=== PATIENT | female | born 2000 | race Caucasian/White ===

== ENCOUNTER 2020-06-13 11:27 | Outpatient (CLI) | payer OTHER ==
[2020-06-13 12:18] LABS: APPEARANCE,URINE CLOUDY; BILIRUBIN,URINE NEGATIVE (NEGATIVE); COLOR,URINE YELLOW; GLUCOSE, URINE NEGATIVE (NEGATIVE); KETONES,URINE NEGATIVE (NEGATIVE); LEUKOCYTE ESTERASE,URINE LARGE (NEGATIVE); NITRITE,URINE NEGATIVE (NEGATIVE); PROTEIN,URINE NEGATIVE (NEGATIVE); URINE SPECIFIC GRAVITY 1.006; UROBILINOGEN,URINE NEGATIVE mg/dL (<2.0)
[2020-06-13 12:40] LABS: URINE AMPHETAMINES SCREEN NEGATIVE; URINE BARBITURATES SCREEN NEGATIVE; URINE BENZODIAZEPINES SCREEN NEGATIVE; URINE COCAINE SCREEN NEGATIVE; URINE MARIJUANA (THC) SCREEN NEGATIVE; URINE METHADONE SCREEN NEGATIVE; URINE PHENCYCLIDINE SCREEN NEGATIVE
[2020-06-13 12:44] LABS: UR PRO/CREAT RATIO RESULT 0.3 mg/mg (0.0-0.2); URINE CREATININE 44.5 mg/dL (16-327)
[2020-06-13 13:01] LABS: ABSOLUTE BASOPHILS # (AUTO) 0.1 10^3/uL (0.0-0.2); ABSOLUTE LYMPHOCYTES (AUTO) 2.5 10^3/uL (0.5-4.7); ABSOLUTE MONOCYTES (AUTO) 0.8 10^3/uL (0.1-1.4); BASOPHILS % (AUTO) 0.7 % (0-2); EOSINOPHILS % (AUTO) 0.4 % (0-6); HEMATOCRIT 35.5 % (36.0-47.0); HEMOGLOBIN 12.2 g/dL (12.0-15.5); LYMPHOCYTES % (AUTO) 24.2 % (13-45); MEAN CORPUSCULAR HEMOGLOBIN 27.6 pg (27.0-33.4); MEAN CORPUSCULAR HGB CONC 34.3 g/dL (32.0-36.0); MEAN CORPUSCULAR VOLUME 81 fl (80-97); MONOCYTES % (AUTO) 7.8 % (3-13); PLATELET COUNT 207 10^3/uL (150-450); RED BLOOD COUNT 4.41 10^6/uL (3.72-5.28); RED CELL DISTRIBUTION WIDTH 13.4 % (11.5-14.0); SEGMENTED NEUTROPHILS % (AUTO) 66.9 % (42-78); TOTAL CELLS COUNTED % (AUTO) 100 %; WHITE BLOOD COUNT 10.5 10^3/uL (4.0-10.5)
[2020-06-13 13:15] LABS: ALBUMIN 3.5 g/dL (3.5-5.0); ALKALINE PHOSPHATASE 198 U/L (38-126); ANION GAP 12 (5-19); ASPARTATE AMINO TRANSFERASE 17 U/L (14-36); BILIRUBIN,DIRECT 0.1 mg/dL (0.0-0.4); BILIRUBIN,TOTAL 0.3 mg/dL (0.2-1.3); BLOOD UREA NITROGEN 8 mg/dL (7-20); CALCIUM 8.8 mg/dL (8.4-10.2); CARBON DIOXIDE 19 mmol/L (22-30); CHLORIDE 105 mmol/L (98-107)
[2020-06-13 13:24] LABS: URIC ACID 5.7 mg/dL (2.5-6.2)
[2020-06-13 13:26] LABS: GLUCOSE 69 mg/dL (75-110)
== END 2020-06-13 13:53 | disposition home or self-care (01) ==
LOC: LC 11:27
PROVIDERS: ATTEND Obstetrics & Gynecology Gynecology
DX: O13.3 Gestational [pregnancy-induced] hypertension without significant proteinuria, third trimester (principal); Z3A.38 38 weeks gestation of pregnancy
CPT/HCPCS: 36415; 59025; 80053; 80307; 81005; 82570; 83615; 84156; 84550; 85025; 94760

== ENCOUNTER 2020-06-14 17:51 | Outpatient (CLI) | payer OTHER ==
[2020-06-14 18:50] LABS: URINE PROTEIN 9.4 mg/dL (<12)
[2020-06-14 18:52] LABS: 24 HOUR URINE PROTEIN RESULT 137 mg/day (42-225)
== END 2020-06-14 18:27 | disposition home or self-care (01) ==
LOC: LC 17:51
PROVIDERS: ATTEND Obstetrics & Gynecology
DX: O13.3 Gestational [pregnancy-induced] hypertension without significant proteinuria, third trimester (principal); Z3A.38 38 weeks gestation of pregnancy
CPT/HCPCS: 84156

== ENCOUNTER 2020-06-16 18:40 | Inpatient (IN) | payer OTHER ==
[2020-06-16] MEDS ORDERED: OXYTOCIN/0.9 % SODIUM CHLORIDE 30 UNIT/500 ML RTUINJ IV PRN (18:42)
[2020-06-16] MEDS ORDERED: DINOPROSTONE 10 MG VAGINAL INSERT.SR PV ONE (18:42)
[2020-06-16] MEDS ORDERED: RINGERS SOLUTION,LACTATED 300 ML IV ONE (18:42)
[2020-06-16] MEDS ORDERED: MAG HYDROX/AL HYDROX/SIMETH SUSP 30 ML UDCUP PO PRN (18:42)
[2020-06-16] MEDS ORDERED: ACETAMINOPHEN 325 MG TABLET PO PRN (18:42)
[2020-06-16] MEDS ORDERED: ZOLPIDEM TARTRATE 5 MG TABLET PO PRN (18:42)
[2020-06-16] MEDS ORDERED: MISOPROSTOL 0.2 MG TABLET ONE (18:47)
[2020-06-16] MEDS ORDERED: OXYTOCIN 10 UNIT/ML VIAL ONE (18:47)
[2020-06-16] MEDS ORDERED: OXYTOCIN/0.9 % SODIUM CHLORIDE 30 UNIT/500 ML RTUINJ ONE (18:47)
[2020-06-16] MEDS ORDERED: LIDOCAINE 1% INJ-PF (10 MG/ML) 30 ML SDV ONE (18:47)
[2020-06-16] MEDS ORDERED: DINOPROSTONE 10 MG VAGINAL INSERT.SR ONE (18:47)
[2020-06-16] MEDS: RINGERS SOLUTION,LACTATED 1,000 ML IV PRN (19:00)
[2020-06-16 19:12] LABS: ABSOLUTE BASOPHILS # (AUTO) 0.1 10^3/uL (0.0-0.2); ABSOLUTE LYMPHOCYTES (AUTO) 2.2 10^3/uL (0.5-4.7); ABSOLUTE MONOCYTES (AUTO) 0.5 10^3/uL (0.1-1.4); ABSOLUTE NEUT (AUTO) 6.2 10^3/uL (1.7-8.2); BASOPHILS % (AUTO) 0.8 % (0-2); EOSINOPHILS % (AUTO) 0.5 % (0-6); HEMATOCRIT 36.7 % (36.0-47.0); HEMOGLOBIN 12.6 g/dL (12.0-15.5); LYMPHOCYTES % (AUTO) 23.9 % (13-45); MEAN CORPUSCULAR HEMOGLOBIN 27.8 pg (27.0-33.4); MEAN CORPUSCULAR HGB CONC 34.3 g/dL (32.0-36.0); MEAN CORPUSCULAR VOLUME 81 fl (80-97); MONOCYTES % (AUTO) 5.8 % (3-13); PLATELET COUNT 223 10^3/uL (150-450); RED BLOOD COUNT 4.54 10^6/uL (3.72-5.28); RED CELL DISTRIBUTION WIDTH 13.5 % (11.5-14.0); TOTAL CELLS COUNTED % (AUTO) 100 %
[2020-06-16 19:28] LABS: APPEARANCE,URINE CLOUDY; BILIRUBIN,URINE NEGATIVE (NEGATIVE); COLOR,URINE YELLOW; GLUCOSE, URINE NEGATIVE (NEGATIVE); KETONES,URINE NEGATIVE (NEGATIVE); LEUKOCYTE ESTERASE,URINE MODERATE (NEGATIVE); NITRITE,URINE NEGATIVE (NEGATIVE); PROTEIN,URINE 30 mg/dL (NEGATIVE); URINE SPECIFIC GRAVITY 1.029
[2020-06-16 19:35] LABS: ALBUMIN 3.7 g/dL (3.5-5.0); ALKALINE PHOSPHATASE 202 U/L (38-126); ANION GAP 9 (5-19); ASPARTATE AMINO TRANSFERASE 19 U/L (14-36); BILIRUBIN,DIRECT 0.1 mg/dL (0.0-0.4); BILIRUBIN,TOTAL 0.3 mg/dL (0.2-1.3); BLOOD UREA NITROGEN 15 mg/dL (7-20); CALCIUM 9.4 mg/dL (8.4-10.2); CARBON DIOXIDE 19 mmol/L (22-30); CHLORIDE 106 mmol/L (98-107); GLUCOSE 110 mg/dL (75-110); POTASSIUM 4.2 mmol/L (3.6-5.0); TOTAL PROTEIN 6.4 g/dL (6.3-8.2); URIC ACID 5.9 mg/dL (2.5-6.2)
[2020-06-16 20:02] LABS: URINE AMPHETAMINES SCREEN NEGATIVE; URINE BARBITURATES SCREEN NEGATIVE; URINE BENZODIAZEPINES SCREEN NEGATIVE; URINE COCAINE SCREEN NEGATIVE; URINE MARIJUANA (THC) SCREEN NEGATIVE; URINE METHADONE SCREEN NEGATIVE; URINE PHENCYCLIDINE SCREEN NEGATIVE
--- NOTE | 2020-06-16 23:01 | Admission Physical ---
Datetime Report Generated by CPN: 06/16/2020 23:00 CURRENT ADMISSION Chief Complaint: Scheduled Induction of Labor Indication for Induction: Gestational HTN Admit Impression : Intact Membranes Admit Plan: Admit to Unit; Initiate Labor Induction Protocol ALLERGIES Medication Allergies: No Medication Allergies: No Known Allergies (06/16/2020) Latex: Unknown OBSTETRICAL HISTORY EDC: 06/21/2020 00:00 : 1 Para: 0 Term: 0 : 0 SAB: 0 IAB: 0 Ectopic: 0 Livin Cesareans: 0 VBACs: 0 Multiple Births: 0 Gestational Diabetes: No Rh Sensitization: No Incompetent Cervix: No BONY: No Infertility: No ART Treatment: No Uterine Anomaly: No IUGR: No Hx Previous C/S: No Macrosomia: No Hx Loss/Stillborn: No PIH: No Hx : No Placenta Previa/Abruption: No Depression/PP Depression: No PTL/PROM: No Post Hemorrhage: No Current Procedures: Ultrasound; NST SEE RECORDS Alcohol: No Marijuana : No Cocaine: No Other Illicit Drugs: No Cigarettes: Never Smoker. [id number] MEDICAL HISTORY Diabetes: No Blood Transfusion: No Pulmonary Disease (Asthma, TB): No Breast Disease: No Hypertension: No Connection Worker Surgery: No Heart Disease: No Hosp/Surgery: Yes Autoimmune Disorder: No Anesthetic Complications: No Kidney Disease: No Abnormal Pap Smear: No Neuro/Epilepsy: No Psychiatric Disorders: No Other Medical Diseases: Yes Hepatitis/Liver Disease: No Significant Family History: No Varicosities/Phlebitis: No Trauma/Violence : No Thyroid Dysfunction: No Medical History Comments: Tonsillectomy, Scoliosis 6 deg INFECTIOUS HISTORY Gonorrhea: No Genital Herpes: No Chlamydia: No Tuberculosis: No Syphilis: No Hepatitis: No HIV/AIDS Exposure: No Rash or Viral Illness: No HPV: No PHYSICAL EXAM General: Normal HEENT: Normal Neurologic: Normal Thyroid: Normal Heart: Normal Lungs: Normal Breast: Deferred Back: Normal Abdomen: Normal Genitourinary Exam: Normal Extremities: Normal DTRs: Normal Pelvic Type: Adequate Vital Signs: Reviewed VAGINAL EXAM Dilatation: 2 Effacement: 80 Station: -1 MEMBRANES Pooling: Negative Membranes: Intact FETUS A EGA: 39.2 Monitoring: External US FHR- Baseline: 140 Variability: Moderate 6-25bpm Decelerations: None FHR Category: Category I Admit Comment: admit for induction PLANS FOR LABOR AND DELIVERY Labor and Delivery: None Pain Management: Natural; Medications; Epidural Feeding Preference: Breast Circumcision: N/A INFORMED CONSENT Signature: with User ID: [email or web address]
[2020-06-17] MEDS: RINGERS SOLUTION,LACTATED 1,000 ML IV PRN (03:20)
--- NOTE | 2020-06-17 09:49 | Warning Signs in Babies ---
VOD Warning Signs Datetime Report Generated by [facility]: 06/17/2020 09:49 VOD#608 -Warning Signs in Babies: Viewed with Parent(s)/Family (06/17/2020 09:48:Keyshawn Maciel RN)
[2020-06-17] MEDS ORDERED: NALBUPHINE HCL INJ 10 MG/1 ML AMPULE INJ ONE (11:11)
[2020-06-17] MEDS ORDERED: PROMETHAZINE HCL INJ 25 MG/1 ML VIAL IV ONE (11:11)
[2020-06-17] MEDS ORDERED: NALBUPHINE HCL INJ 10 MG/1 ML AMPULE ONE (11:13)
[2020-06-17] MEDS ORDERED: PROMETHAZINE HCL INJ 25 MG/1 ML VIAL ONE (11:13)
[2020-06-17] MEDS ORDERED: FENTANYL/BUPIVACAINE/NS/PF 0 MCG/0 ML RTUINJ EPI ONE (13:03)
[2020-06-17] MEDS ORDERED: ROPIVACAINE HCL 0.2% INJ/PF (2 MG/ML) 20 ML SDV ONE (13:03)
[2020-06-17] MEDS ORDERED: EPHEDRINE SULFATE INJ 50 MG/1 ML AMPULE ONE (13:03)
[2020-06-17] MEDS ORDERED: ACETAMINOPHEN WITH CODEINE #3 TABLET PO PRN ×2 (13:25)
[2020-06-17] MEDS ORDERED: DIPH/PERTUSS(ACELL)/TETANUS VAC/PF 0.5 ML SYR (>=10YO) IM PRN (13:25)
[2020-06-17] MEDS ORDERED: MAGNESIUM HYDROXIDE SUSP 30 ML UDCUP PO PRN (13:25)
[2020-06-17] MEDS ORDERED: GLYCERIN/WITCH HAZEL LEAF 1 EACH MED..WIPE TP PRN (13:25)
[2020-06-17] MEDS ORDERED: NA PHOS,M-B/NA PHOS,DI-BA (ADULT) 133 ML ENEMA PR PRN (13:25)
[2020-06-17] MEDS ORDERED: DIPHENHYDRAMINE HCL 25 MG CAPSULE PO PRN (13:25)
[2020-06-17] MEDS ORDERED: PROMETHAZINE HCL 25 MG TABLET PO PRN (13:25)
[2020-06-17] MEDS ORDERED: PROMETHAZINE HCL INJ 25 MG/1 ML VIAL IV PRN (13:25)
[2020-06-17] MEDS ORDERED: MEASLES,MUMPS&RUBELLA VACC/PF 0.5 ML VIAL SUBCUT PRN (13:25)
[2020-06-17] MEDS ORDERED: PROMETHAZINE HCL 25 MG SUPP.RECT PR PRN (13:25)
[2020-06-17] MEDS ORDERED: PSEUDOEPHEDRINE HCL 30 MG TABLET PO PRN (13:25)
[2020-06-17] MEDS ORDERED: DIBUCAINE 1% OINTMENT 28 GM TP PRN (13:25)
[2020-06-17] MEDS ORDERED: OXYTOCIN/0.9 % SODIUM CHLORIDE 30 UNIT/500 ML RTUINJ IV PRN (13:25)
[2020-06-17] MEDS ORDERED: ZOLPIDEM TARTRATE 5 MG TABLET PO PRN (13:25)
[2020-06-17] MEDS ORDERED: BENZOCAINE/MENTHOL AEROSOL SPRAY 56 ML TOP PRN (13:25)
[2020-06-17] MEDS ORDERED: ACETAMINOPHEN 650 MG SUPP.RECT PR PRN (13:25)
[2020-06-17] MEDS: IBUPROFEN 800 MG TABLET PO SCH ×2 (16:55→22:35)
[2020-06-17] MEDS: DOCUSATE SODIUM 100 MG CAPSULE PO SCH (17:17)
[2020-06-17] MEDS: FERROUS SULFATE 325 MG TABLET PO SCH (17:17)
--- NOTE | 2020-06-17 17:19 | Delivery Summary ---
Del Sum A-C Datetime Report Generated by CPN: 06/17/2020 17:19 DELIVERY PERSONNEL DELIVERY PERSONNEL: [id number] Delivery Doctor:: Clovis Corral MD Labor and Delivery Nurse:: Keyshawn Maciel RNslime plant operator helper Nurse:: Shereen Munoz RN Nursery Nurse:: Shaniqua Saunders RN Nursery Nurse:: Monica Abreu RN Financial Accounting Manager/AIRPORT GUIDE: Savana Salomon, SNOWBOARDER MATERNAL INFORMATION Delivery Anesthesia: None Medications After Delivery: Pitocin 30 Units in 500ml NS/D5W Delivery QBL: 100 Maternal Complications: None LABOR SUMMARY EDC: 06/21/2020 00:00 No. Babies in Womb: 1 Attempted: No Labor Anesthesia: None LABOR INFORMATION Reason for Induction: Chronic Primary/Essential HTN Onset of Labor: 06/17/2020 11:28 Complete Dilatation: 06/17/2020 13:10 Cervical Ripening Agents: Cervidil Oxytocin: Induction Group B Beta Strep: Negative Antibiotics # of Doses: 0 Name of Antibiotic Given: N/A Steroids Given: None Reason Steroids Not Administered: Not Applicable MEMBRANES Membranes Rupture Method: Artificial Rupture of Membranes: 06/17/2020 09:14 Length of Rupture (hr): 5.28 Amniotic Fluid Color: Clear Amniotic Fluid Amount: Small Amniotic Fluid Odor: None STAGES OF LABOR Stage 1 hr: 1 Stage 1 min: 42 Stage 2 hr: 1 Stage 2 min: 21 Stage 3 hr: 0 Stage 3 min: 9 Total Time in Labor hr: 3 Total Time in Labor min: 12 VAGINAL DELIVERY Episiotomy: None Laceration #1: Perineal Laceration Extension #1: Second Degree Laceration #2: None Laceration Extension #2: N/A Laceration #3: None Laceration Extension #3: N/A Laceration Repair: Yes Laceration Repair Note: repair of second degree perineal laceration with 3-0 chromic Sponge Count Correct: Vaginal Sweep Performed Sharps Count Correct: Yes CSECTION DELIVERY Primary Indication: N/A Secondary Indication: N/A CSection Incidence: N/A Labor: N/A Elective: N/A CSection Incision: N/A BABY A INFORMATION Delivery Date/Time: 06/17/2020 14:31 Method of Delivery: Vaginal Nurse Controlled Delivery: No Born in Route : No : N/A Forceps: N/A Vacuum Extraction: N/A Shoulder Dystocia : No PRESENTATION/POSITION BABY A Presentation: Cephalic Cephalic Presentation: Vertex Vertex Position: Left Occipital Anterior Breech Presentation: N/A PLACENTA INFORMATION BABY A Placenta Delivery Time : 06/17/2020 14:40 Placenta Method of Delivery: Spontaneous Placenta Status: Delivered SCORES BABY A Heart Rate 1 min: >100 bpm Resp Effort 1 min: Good Cry Reflex Irritability 1 min: Cough or Sneeze or Pulls Away Muscle Tone 1 min: Active Motion Color 1 min: Body [place], Extremities Blue Resuscitation Effort 1 min: Tactile Stimulation SCORE 1 MIN: 9 Heart Rate 5 min: >100 bpm Resp Effort 5 min: Good Cry Reflex Irritability 5 min: Cough or Sneeze or Pulls Away Muscle Tone 5 min: Active Motion Color 5 min: Body [place], Extremities Blue Resuscitation Effort 5 min: Tactile Stimulation SCORE 5 MIN: 9 INFORMATION BABY A Gestational Age at Delivery: 39.3 Gestational Status: Full Term- 39- 40.6 Weeks Outcome : Liveborn Infant Condition : Stable Infant Sex: Female IDENTIFICATION BABY A Infant Verification Date/Time: 06/17/2020 14:57 ID Band Number: [id number] Mother's Name Verified: Yes RN Verifying : TMartin,RNC Additional Verifying Personnel: TMartin,RNC WEIGHT/LENGTH BABY A Infant Birthweight (gm): 3215 Infant Weight (lb): 7 Infant Weight (oz): 1 Length (in): 19.50 Length (cm): 49.53 CORD INFORMATION BABY A No. Cord Vessels: 3 Nuchal Cord : N/A Cord Blood Taken: Yes-For Storage (Mom's Blood type +) Suction: None ASSESSMENT BABY A Infant Complications: None Physical Findings at Delivery: Within Normal Limits Infant Respirations: Appears Normal Skin to Skin: Yes Transferred To: Remains with Mother BABY B INFORMATION : N/A SIGNATURES Signature: with User ID: [email or web address]
--- NOTE | 2020-06-17 17:19 | Birth Certificate Data ---
Cert Data Datetime Report Generated by CPN: 06/17/2020 17:19 CERTIFICATE DATA Delivery Provider: Clovis Corral MD (06/13/2020 11:37:Harriett Short RN) 47a. Care: Yes (06/13/2020 11:37:Beatris Andres RN) 47b. Date of First Visit: 10/31/2019 00:00 (06/13/2020 11:37:Beatris Andres RN) 47c. Date of Last Visit: 06/11/2020 00:00 (06/13/2020 11:37:Harriett Short RN) 47d. Number of Visits: 14 (06/13/2020 11:37:Keyshawn Maciel RN) 48a. Number of Prev Live Births: 0 (06/13/2020 11:37:Beatris Andres RN) 48b. Now Livin (06/13/2020 11:37:Beatris Andres RN) 48c. Live Births Now : 0 (06/13/2020 11:37:QS system process) 48e. Losses: 0 (06/13/2020 11:37:Beatris Andres RN) RISK FACTORS IN THIS 49a. Diabetes: No (06/13/2020 11:37:Keyshawn Maciel RN) 49b. Hypertension: No (06/13/2020 11:37:Keyshawn Maciel RN) Type of Hypertension: Gestational (PIH, Pre-eclampsia) (06/13/2020 11:37:Darshana Cano RN) 49c. Previous Births: 0 (06/13/2020 11:37:Keyshawn Maciel RN) 49d. Stillborns: No (06/13/2020 11:37:Keyshawn Maciel RN) 49d. IUGR: No (06/13/2020 11:37:Keyshawn Maciel RN) 49e. Infertility Treatment: No (06/13/2020 11:37:Keyshawn Maciel RN) 49f. Previous Cesareans: 0 (06/13/2020 11:37:Keyshawn Maciel RN) Mother's Height 50b. Height Inches: 68 (06/17/2020 16:49:QS system process) Mother's Weight 51a. Pre- Weight (lbs): 180 (06/13/2020 11:37:Harriett Short RN) 51b. Weight at Delivery (lbs): 200 (06/17/2020 16:49:QS system process) 52. Dt Last Normal Menses Began: 09/03/2019 00:00 (06/13/2020 11:37:Jaclyn Linda RN) Infections Present/Treated 53a. Gonorrhea: No (06/13/2020 11:37:Keyshawn Maciel RN) Results this Hospital Visit : Negative (06/13/2020 11:37:Jaclyn Linda RN) 53b. Syphilis: No (06/13/2020 11:37:Keyshawn Maciel RN) 53c. Chlamydia: No (06/13/2020 11:37:Keyshawn Maciel RN) Results this Hospital Visit: Negative (06/13/2020 11:37:Jaclyn Linda RN) 53d. Hepatitis B: No (06/13/2020 11:37:Keyshawn Maciel RN) Results this Hospital Visit: Negative (06/13/2020 11:37:Jaclny Linda RN) 53e. Hepatitis C: Negative (06/13/2020 11:37:Keyshawn Maciel RN) 53h. Mother Tested for HBsAG: Yes (06/13/2020 11:37:Beatris Andres RN) 53i. Date Tested: 10/31/2019 00:00 (06/13/2020 11:37:Beatris Andres RN) 53j. Test Result: Negative (06/13/2020 11:37:Jcalyn Linda RN) Obstetric Procedures 54a, b, c. Obstetric Procedures: Ultrasound; NST (06/13/2020 11:37:Darshana Cano RN) Cigarette Smoking Cigarette Smoking: Never Smoker. [id number] (06/13/2020 11:37:Darshana Cano RN) 55a. 3 Months Before Preg - Ci (06/13/2020 11:37:Keyshawn Maciel RN) 55a. Packs: 0 (06/13/2020 11:37:Keyshawn Maciel RN) 55b. 1st Trimester of Preg- Ci (06/13/2020 11:37:Keyshawn Maciel RN) 55b. Packs: 0 (06/13/2020 11:37:Keyshawn Maciel RN) 55c. 2nd Trimester of Preg- Ci (06/13/2020 11:37:Keyshawn Maciel RN) 55c. Packs: 0 (06/13/2020 11:37:Keyshawn Maciel RN) 55d. 3rd Trimester of Preg- Ci (06/13/2020 11:37:Keyshawn Maciel RN) 55d. Packs: 0 (06/13/2020 11:37:Keyshawn Maciel RN) Onset of Labor 56a. PROM >12 Hrs: 5.28 (06/13/2020 11:37:QS system process) 56b. Precipitous Labor <3 Hrs: 3 (06/13/2020 11:37:QS system process) 56c. Prolonged Labor > 20 Hrs: 3 (06/13/2020 11:37:QS system process) 57a. Induction of Labor: Induction (06/13/2020 11:37:Keyshawn Maciel RN) 57a. Induction of Labor: Cervidil (06/16/2020 19:46:Darshana Cano RN) 57c. Non-Vertex Presentation A: Vertex (06/13/2020 11:37:Clovis Corral MD ([facility])) 57d. Steroids - Lung Mat: None (06/13/2020 11:37:Harriett Short RN) 57d. Steroids - Lung Mat: Not Applicable (06/13/2020 11:37:Harriett Short RN) 57g. Moderate/Heavy Meconium: Clear (06/17/2020 09:14:Keyshawn Maciel RN) 57h. Intolerance of Labor: N/A (06/13/2020 11:37:Keyshawn Maciel RN) : N/A (06/13/2020 11:37:Keyshawn Maciel RN) 57i. Epidural/Spinal Anesthesia: None (06/13/2020 11:37:Harriett Short RN) Method of Delivery 58a. Forceps - Unsuccessful A: N/A (06/13/2020 11:37:Keyshawn Maciel RN) 58b. Vacuum - Unsuccessful A: N/A (06/13/2020 11:37:Keyshawn Maciel RN) 58c. Presentation at 58c. Presentation at - A : Vertex (06/13/2020 11:37:Clovis Corral MD ([facility])) 58c. Presentation at - A : N/A (06/13/2020 11:37:Clovis Corral MD ([facility])) 58c. Presentation at - A : Cephalic (06/13/2020 11:37:Clovis Corral MD ([facility])) Final Route and Method of Del 58d. Baby A Route/Delivery: Vaginal (06/13/2020 11:37:Keyshawn Maciel RN) 58e. Trial of Labor Attempted: No (06/13/2020 11:37:Keyshawn Maciel RN) 58e. Trial of Labor Attempted A: N/A (06/13/2020 11:37:Keyshawn Maciel RN) 58e. Trial of Labor Attempted B: N/A (06/13/2020 11:37:Keyshawn Maciel RN) Maternal Morbidity 59b. 3rd or 4th Degree Lacs: Perineal (06/13/2020 11:37:Clovis Corral MD ([facility])) Birthweight Baby A: 3215 (06/13/2020 11:37:Keyshawn Maciel RN) 60a. Pounds : 7 (06/13/2020 11:37:QS system process) 60b. Ounces: 1 (06/13/2020 11:37:QS system process) 61. GA at Delivery Baby A: 39.3 (06/13/2020 11:37:Keyshawn Maciel RN) : Full Term- 39- 40.6 Weeks (06/13/2020 11:37:QS system process) 62a. 5 Minute Baby A: 9 (06/13/2020 11:37:QS system process)
[2020-06-17] MEDS: FAMOTIDINE 20 MG TABLET PO SCH (22:35)
[2020-06-18] MEDS: IBUPROFEN 800 MG TABLET PO SCH ×3 (05:23→22:27)
[2020-06-18 07:26] LABS: HEMATOCRIT 32.6 % (36.0-47.0); MEAN CORPUSCULAR HEMOGLOBIN 27.4 pg (27.0-33.4); MEAN CORPUSCULAR HGB CONC 33.7 g/dL (32.0-36.0); MEAN CORPUSCULAR VOLUME 81 fl (80-97); PLATELET COUNT 191 10^3/uL (150-450); RED BLOOD COUNT 4.02 10^6/uL (3.72-5.28); RED CELL DISTRIBUTION WIDTH 13.6 % (11.5-14.0)
[2020-06-18] MEDS: SENNOSIDES/DOCUSATE 8.6-50 MG 1 EACH TABLET PO SCH (09:23)
[2020-06-18] MEDS: PRENATAL VITAMIN W DHA CAPSULE PO SCH (09:23)
[2020-06-18] MEDS: FERROUS SULFATE 325 MG TABLET PO SCH ×2 (09:23→17:44)
[2020-06-18] MEDS: FAMOTIDINE 20 MG TABLET PO SCH ×2 (09:23→22:27)
[2020-06-18] MEDS: DOCUSATE SODIUM 100 MG CAPSULE PO SCH ×2 (09:24→17:43)
--- NOTE | 2020-06-18 10:33 | PDOC PROGRESS REPORT ---
Subjective-OB Progress Note for:: 06/18/20 - PP Day #1, doing well, UOB, voiding, , A+, rubella + Physical Exam (OB) Vital Signs: Temp Pulse Resp BP Pulse Ox 97.7 F 53 L 16 130/87 H 99 06/18/20 08:00 06/18/20 08:00 06/18/20 08:00 06/18/20 08:00 06/18/20 08:00 Intake & Output 06/17/20 06/18/20 06/19/20 06:59 06:59 06:59 Intake Total 1000 400 Balance 1000 400 Weight 90.8 kg - General General Appearance: Appears well, Alert In distress: None - PIH/Pre-Eclampsia DTR's: 1 + Clonus: Negative Headache: Absent Epigastric Pain: No Visual Changes: No - Maternal Morbidity 59. Maternal Morbidity (serious complications experinced by the mother associated with labor and delivery: None of the above - Lochia Lochia Amount: Small 10-25 ml - Abdomen Description: Soft Hernia Present: No Fundal Description: Firm, Midline Fundal Height: u/u - u/2 - Respiratory Respiratory Status: No respiratory distress - Abdominal Distension: No distension Tenderness: Nontender - Genitourinary Genitourinary Note: voiding - Extremities Upper extremity: Normal inspection Lower extremities: Normal inspection - Neurological Cognition: Normal Orientation: AAOx4 - Psychological Associated symptoms: Normal affect, Normal mood - Skin Skin Temperature: Warm Skin Moisture: Dry Objective-Diagnostic Laboratory: 06/18/20 07:00 06/16/20 18:56 06/18/20 06/18/20 07:00 07:00 WBC 14.0 H RBC 4.02 Hgb 11.0 L Hct 32.6 L MCV 81 MCH 27.4 MCHC 33.7 RDW 13.6 Plt Count 191 Blood Type A NEGATIVE Assessment and Plan(PN) - Assessment and Plan (1) (normal spontaneous vaginal delivery) Is this a current diagnosis for this admission?: Yes Plan:: ambulation encouraged, Routine PP orders - Time Spent with Patient Time with patient: Less than 15 minutes Medications reviewed and adjusted accordingly: Yes - Disposition Anticipated Discharge Disposition: Home, Self Care Anticipated Discharge Timeframe: within 24 hours
[2020-06-19] MEDS: IBUPROFEN 800 MG TABLET PO SCH (06:13)
--- NOTE | 2020-06-19 08:57 | PDOC PROGRESS REPORT ---
Subjective-OB Progress Note for:: 06/19/20 Subjective: doing well, no c/o, ready to go home, baby and hsb at BS, , voiding and ambulating Physical Exam (OB) Vital Signs: Temp Pulse Resp BP Pulse Ox 97.5 F 68 16 118/85 100 06/19/20 08:03 06/19/20 08:03 06/19/20 08:03 06/19/20 08:03 06/19/20 08:03 Intake & Output 06/18/20 06/19/20 06/20/20 06:59 06:59 06:59 Intake Total 400 Balance 400 - PIH/Pre-Eclampsia DTR's: 1 + Clonus: Negative Headache: Absent Epigastric Pain: No Visual Changes: No - Maternal Morbidity 59. Maternal Morbidity (serious complications experinced by the mother associated with labor and delivery: None of the above - Lochia Lochia Amount: Small 10-25 ml Lochia Color: Rubra/Red - Abdomen Description: Soft Hernia Present: No Fundal Description: Firm, Midline Fundal Height: u/u - u/2 Objective-Diagnostic Laboratory: 06/18/20 07:00 06/16/20 18:56 06/18/20 07:00 Blood Type A NEGATIVE Assessment and Plan(PN) - Assessment and Plan (1) Rh negative status during Qualifiers: Trimester: first trimester Qualified Code(s): O26.891 - Other specified related conditions, first trimester; Z67.91 - Unspecified blood type, Rh negative Is this a current diagnosis for this admission?: Yes (2) (normal spontaneous vaginal delivery) Is this a current diagnosis for this admission?: Yes (3) Chronic hypertension affecting Is this a current diagnosis for this admission?: Yes - Time Spent with Patient Time with patient: Less than 15 minutes Medications reviewed and adjusted accordingly: Yes - Disposition Anticipated Discharge Disposition: Home, Self Care Anticipated Discharge Timeframe: within 24 hours
--- NOTE | 2020-06-19 09:03 | PDOC DISCHARGE SUMMARY ---
Impression - Admit/DC Date/PCP Admission Date/Primary Care Provider: 06/16/20 18:40 JESICA ELENA MD Discharge Date: 06/19/20 - Discharge Diagnosis (1) Rh negative status during Is this a current diagnosis for this admission?: Yes (2) (normal spontaneous vaginal delivery) Is this a current diagnosis for this admission?: Yes (3) Chronic hypertension affecting Is this a current diagnosis for this admission?: Yes - Additional Information Resuscitation Status: Full Code Discharge Diet: As Tolerated, Regular Discharge Activity: Activity As Tolerated, No Lifting Over 10 Pounds, No Lifting/Push/Pulling, Pelvic Rest Referrals: JESICA ELENA MD [Primary Care Provider] - Home Medications: Prenat 115/Iron Fum/Folic/Dss [ 19 Tablet] 1 each PO DAILY 06/13/20 HPI Gestational Age: 39.3 Reason(s) for Admission: Induction of Labor Admission Note: chronic hypertension, no meds Procedures: NST, Ultrasound Intrapartum Procedure(s): Spontaneous Vaginal Delivery Complication(s): Laceration-Perineal Laceration-Degree: 2nd Hospital Course Hospital Course: routine 59. Maternal Morbidity (serious complications experinced by the mother associated with labor and delivery: None of the above Results Laboratory Results: WBC 14.0 10^3/uL (4.0-10.5) H 06/18/20 07:00 RBC 4.02 10^6/uL (3.72-5.28) 06/18/20 07:00 Hgb 11.0 g/dL (12.0-15.5) L 06/18/20 07:00 Hct 32.6 % (36.0-47.0) L 06/18/20 07:00 MCV 81 fl (80-97) 06/18/20 07:00 MCH 27.4 pg (27.0-33.4) 06/18/20 07:00 MCHC 33.7 g/dL (32.0-36.0) 06/18/20 07:00 RDW 13.6 % (11.5-14.0) 06/18/20 07:00 Plt Count 191 10^3/uL (150-450) 06/18/20 07:00 Lymph % (Auto) 23.9 % (13-45) 06/16/20 18:56 Tate % (Auto) 5.8 % (3-13) 06/16/20 18:56 Eos % (Auto) 0.5 % (0-6) 06/16/20 18:56 Baso % (Auto) 0.8 % (0-2) 06/16/20 18:56 Absolute Neuts (auto) 6.2 10^3/uL (1.7-8.2) 06/16/20 18:56 Absolute Lymphs (auto) 2.2 10^3/uL (0.5-4.7) 06/16/20 18:56 Absolute Monos (auto) 0.5 10^3/uL (0.1-1.4) 06/16/20 18:56 Absolute Eos (auto) 0.0 10^3/uL (0.0-0.6) 06/16/20 18:56 Absolute Basos (auto) 0.1 10^3/uL (0.0-0.2) 06/16/20 18:56 Seg Neutrophils % 69.0 % (42-78) 06/16/20 18:56 Sodium 133.6 mmol/L (137-145) L 06/16/20 18:56 Potassium 4.2 mmol/L (3.6-5.0) 06/16/20 18:56 Chloride 106 mmol/L (98-107) 06/16/20 18:56 Carbon Dioxide 19 mmol/L (22-30) L 06/16/20 18:56 Anion Gap 9 (5-19) 06/16/20 18:56 BUN 15 mg/dL (7-20) 06/16/20 18:56 Creatinine 0.63 mg/dL (0.52-1.25) 06/16/20 18:56 Est GFR ( Amer) > 60 (>60) 06/16/20 18:56 Est GFR (MDRD) Non-Af > 60 (>60) 06/16/20 18:56 Glucose 110 mg/dL (75-110) 06/16/20 18:56 Uric Acid 5.9 mg/dL (2.5-6.2) 06/16/20 18:56 Calcium 9.4 mg/dL (8.4-10.2) 06/16/20 18:56 Total Bilirubin 0.3 mg/dL (0.2-1.3) 06/16/20 18:56 Direct Bilirubin 0.1 mg/dL (0.0-0.4) 06/16/20 18:56 Neonat Total Bilirubin Not Reportable 06/16/20 18:56 Neonat Direct Bilirubin Not Reportable 06/16/20 18:56 Neonat Indirect Bili Not Reportable 06/16/20 18:56 AST 19 U/L (14-36) 06/16/20 18:56 ALT 9 U/L (<35) 06/16/20 18:56 Alkaline Phosphatase 202 U/L (38-126) H 06/16/20 18:56 Lactate Dehydrogenase 245 U/L (120-246) 06/16/20 18:56 Total Protein 6.4 g/dL (6.3-8.2) 06/16/20 18:56 Albumin 3.7 g/dL (3.5-5.0) 06/16/20 18:56 Urine Color YELLOW 06/16/20 19:00 Urine Appearance CLOUDY 06/16/20 19:00 Urine pH 5.0 (5.0-9.0) 06/16/20 19:00 Ur Specific [place] 1.029 06/16/20 19:00 Urine Protein 30 mg/dL (NEGATIVE) H 06/16/20 19:00 Urine Glucose (UA) NEGATIVE mg/dL (NEGATIVE) 06/16/20 19:00 Urine Ketones NEGATIVE mg/dL (NEGATIVE) 06/16/20 19:00 Urine Blood NEGATIVE (NEGATIVE) 06/16/20 19:00 Urine Nitrite NEGATIVE (NEGATIVE) 06/16/20 19:00 Urine Bilirubin NEGATIVE (NEGATIVE) 06/16/20 19:00 Urine Urobilinogen 2.0 mg/dL (<2.0) H 06/16/20 19:00 Ur Leukocyte Esterase MODERATE (NEGATIVE) H 06/16/20 19:00 Urine Ascorbic Acid NEGATIVE (NEGATIVE) 06/16/20 19:00 Urine Opiates Screen NEGATIVE 06/16/20 19:00 Urine Methadone Screen NEGATIVE 06/16/20 19:00 Ur Barbiturates Screen NEGATIVE 06/16/20 19:00 Ur Phencyclidine Scrn NEGATIVE 06/16/20 19:00 Ur Amphetamines Screen NEGATIVE 06/16/20 19:00 U Benzodiazepines Scrn NEGATIVE 06/16/20 19:00 Urine Cocaine Screen NEGATIVE 06/16/20 19:00 U Marijuana (THC) Screen NEGATIVE 06/16/20 19:00 RPR NONREACTIVE (NONREACTIVE) 06/16/20 18:56 Blood Type A NEGATIVE 06/18/20 07:00 Antibody Screen POSITIVE 06/16/20 18:56 Antibody Identification RHOGAM INDUCED ANTI-D 06/16/20 18:56 Screen NEGATIVE 06/18/20 07:00 Plan Health Concerns: BP Plan of Treatment: dc home, rev S&S to report7, take BP at home Goals: no complications Time Spent: Less than 30 Minutes
[2020-06-19] MEDS: DOCUSATE SODIUM 100 MG CAPSULE PO SCH (09:33)
[2020-06-19] MEDS: PRENATAL VITAMIN W DHA CAPSULE PO SCH (09:33)
[2020-06-19] MEDS: SENNOSIDES/DOCUSATE 8.6-50 MG 1 EACH TABLET PO SCH (09:33)
[2020-06-19] MEDS: FERROUS SULFATE 325 MG TABLET PO SCH (09:33)
[2020-06-19] MEDS: FAMOTIDINE 20 MG TABLET PO SCH (09:33)
[2020-06-19 09:47] VITALS: BP 136/90
== END 2020-06-19 13:15 | disposition home or self-care (01) | DRG 807 ==
LOC: LR 18:40 → 2S 06-17 16:45
PROVIDERS: ADMIT Obstetrics & Gynecology; ATTEND Obstetrics & Gynecology
PROC: 10E0XZZ Delivery of Products of Conception, External Approach (ICD-10-PCS; principal; 2020-06-17)
PROC: 0KQM0ZZ Repair Perineum Muscle, Open Approach (ICD-10-PCS; 2020-06-17)
PROC: 3E0234Z Introduction of Serum, Toxoid and Vaccine into Muscle, Percutaneous Approach (ICD-10-PCS; 2020-06-19)
DX: O13.4 Gestational [pregnancy-induced] hypertension without significant proteinuria, complicating childbirth (principal); Z37.0 Single live birth; O70.1 Second degree perineal laceration during delivery; O26.893 Other specified pregnancy related conditions, third trimester; Z67.11 Type A blood, Rh negative; Z3A.39 39 weeks gestation of pregnancy
CPT/HCPCS: 36415; 80053; 80307; 81005; 83615; 84550; 85025; 85027; 85461; 86592; 86850; 86870; 86900; 86901; 94760; J2300; J2550; J2590; J2790; J2795; J3010; J3490